=== PATIENT | male | born 1975 | race Hispanic/Latino ===

== ENCOUNTER 2017-09-22 11:35 | Emergency (ER) | payer BC, SELFPAY ==
[~2017-09-22 11:35] MED LIST: Iopamidol 370 76% 100 ML VIAL ONE
[2017-09-22] MEDS ORDERED: traMADol HCl 50 MG TAB ONE (12:26)
[2017-09-22] MEDS ORDERED: Ketorolac Tromethamine 60 MG/2 ML VIAL ONE (12:26)
[2017-09-22] MEDS ORDERED: Acetaminophen 500 MG TAB ONE (13:43)
[2017-09-22 13:53] LABS: #Basophils 0.2 thou/uL (0.0-0.2); #Lymphocytes 1.2 thou/uL (1.20-3.40); #Neutrophils 8.6 thou/uL (1.40-6.50); %Basophils 1.5 % (0.0-1.0); %Eosinophils 0.1 % (0.0-10.0); %Lymphocytes 11.1 % (21.0-51.0); %Monocytes 9.1 % (0.0-10.0); %Neutrophils 78.2 % (42.0-75.0); Hemoglobin 15.9 g/dL (14.0-18.0); Mean Corpuscular HGB CONC 32.8 g/dL (32.0-36.0); Mean Corpuscular Volume 82.4 fl (80.0-94.0); Mean Platelet Volume 10.5 fL (7.4-10.4); Platelet Count 201 thou/uL (130-400); RBC Distribution Width 12.3 % (11.5-14.5); Red Blood Cell (RBC) Count 5.87 mill/uL (4.70-6.10); White Blood Cell (WBC) Count 10.9 thou/uL (4.8-10.8)
[2017-09-22 14:01] LABS: ALT (SGPT) 114 U/L (8-55); AST (SGOT) 59 U/L (5-34); Albumin 3.7 g/dL (3.5-5.0); Alkaline Phosphatase 260 U/L (40-150); Anion Gap 17 mmol/L (10-20); BUN (Urea Nitrogen) 15 mg/dL (8.9-20.6); Bilirubin, Total 0.6 mg/dL (0.2-1.2); Calc. Creatinine Clearance 0 mL/min (70-130); Calcium 9.9 mg/dL (7.8-10.44); Carbon Dioxide 24 mmol/L (22-29); Chloride 94 mmol/L (98-107); Estimated GFR-MDRD Greater than 90; Globulin 4.7 g/dL (2.4-3.5); Glucose 106 mg/dL (70-105); Potassium 3.9 mmol/L (3.5-5.1); Protein, Total 8.4 g/dL (6.0-8.3); Sodium 131 mmol/L (136-145)
[2017-09-22] MEDS ORDERED: Sodium Chloride 0.9% 1,000 ML ONE (14:03)
[2017-09-22 14:28] LABS: Bilirubin Small (Negative); Blood, Urine Trace (Negative); Clarity Clear (Clear); Glucose, Urine (Dipstick) Negative (Negative); Leukocyte Negative (Negative); Nitrite Negative (Negative); Protein, Urine (Dipstick) 100 mg/dL (Neg-Trace); Specific Gravity, Urine 1.015 (1.005-1.030)
[2017-09-22 14:41] LABS: Bacteria/HPF Rare-Few HPF (None Seen); RBC/HPF 0-3 HPF (0-3); Squamous Epithelial 0-3 HPF (0-3); WBC/HPF 0-3 HPF (0-3)
--- NOTE | 2017-09-22 15:34 | CT ---
CT CHEST WITH IV CONTRAST: Date: 09/22/17 PROVIDED CLINICAL HISTORY: Fever of unknown origin. FINDINGS: The heart, pericardium, and great vessels demonstrate an unremarkable CT appearance. The lungs are free of significant opacity. There is a mild right pleural effusion, which appears free layering and without peripheral enhancemen t. There is no evidence for pneumothorax. The airway appears patent and of normal caliber. The osseous s tructures demonstrate no concerning osteoblastic or osteolytic lesions. The visualized portions of th e upper abdomen demonstrate an unremarkable CT appearance. IMPRESSION: Mild right pleural effusion. POS: [facility]
== END 2017-09-22 15:10 | disposition home or self-care (01) ==
LOC: NAV ERS 11:35
DX: S29.012A Strain of muscle and tendon of back wall of thorax, initial encounter (principal); E86.0 Dehydration; R50.9 Fever, unspecified; I10 Essential (primary) hypertension; R94.5 Abnormal results of liver function studies; F17.210 Nicotine dependence, cigarettes, uncomplicated; Z79.899 Other long term (current) drug therapy; X58.XXXA Exposure to other specified factors, initial encounter
CPT/HCPCS: 71260; 80053; 81003; 81015; 83605; 85025; 87040; 87077; 87149; 87186; 96360; 96372; J1885; J7050

== ENCOUNTER 2018-05-27 11:44 | Emergency (ER) | payer OTHER, SELFPAY ==
[2018-05-27] MEDS ORDERED: Ondansetron PF 4 MG/2 ML Vial ONE (12:00)
[2018-05-27] MEDS ORDERED: Fentanyl 100 MCG/2 ML VIAL ONE (12:00)
[2018-05-27] MEDS ORDERED: Sodium Chloride 0.9% 1,000 ML ONE ×2 (12:00→14:43)
[2018-05-27 12:30] LABS: ALT (SGPT) 28 U/L (8-55); AST (SGOT) 19 U/L (5-34); Albumin 4.2 g/dL (3.5-5.0); Alkaline Phosphatase 92 U/L (40-150); Anion Gap 15 mmol/L (10-20); BUN (Urea Nitrogen) 13 mg/dL (8.9-20.6); Bilirubin, Total 0.9 mg/dL (0.2-1.2); Calc. Creatinine Clearance 0 mL/min (70-130); Calcium 9.7 mg/dL (7.8-10.44); Carbon Dioxide 21 mmol/L (22-29); Chloride 102 mmol/L (98-107); Estimated GFR-MDRD Greater than 90; Glucose 112 mg/dL (70-105); Lipase 8 U/L (8-78); Potassium 3.8 mmol/L (3.5-5.1); Protein, Total 8.2 g/dL (6.0-8.3); Sodium 134 mmol/L (136-145)
[2018-05-27 12:34] LABS: #Basophils 0.1 thou/uL (0.0-0.2); #Eosinphils 0.1 thou/uL (0.0-0.7); #Lymphocytes 1.6 thou/uL (1.20-3.40); #Monocytes 0.8 thou/uL (0.11-0.59); #Neutrophils 10.2 thou/uL (1.40-6.50); %Basophils 0.5 % (0.0-1.0); %Eosinophils 0.5 % (0.0-10.0); %Lymphocytes 12.5 % (21.0-51.0); %Monocytes 6.6 % (0.0-10.0); %Neutrophils 79.8 % (42.0-75.0); Hemoglobin 15.5 g/dL (14.0-18.0); Mean Corpuscular HGB CONC 31.7 g/dL (32.0-36.0); Mean Corpuscular Hemoglobin 27.1 pg (27.0-31.0); Mean Corpuscular Volume 85.7 fL (78.0-98.0); Mean Platelet Volume 12.6 fL (7.4-10.4); Platelet Count 240 thou/uL (130-400); RBC Distribution Width 11.8 % (11.5-14.5); White Blood Cell (WBC) Count 12.7 thou/uL (4.8-10.8)
--- NOTE | 2018-05-27 12:59 | RAD ---
CHEST 1 VIEW: Date: 05/27/18 INDICATION: History of chest pain and abdominal pain. FINDINGS: Lungs are clear. Heart size accentuated by exam technique. No pleural effusion or pneumothorax is rosa dent. No acute osseous abnormality is evident. IMPRESSION: No acute abnormality. POS: [facility]
[2018-05-27] MEDS ORDERED: metroNIDAZOLE 500 MG/100 ML BAG ONE (13:51)
[2018-05-27] MEDS ORDERED: Morphine 4 MG/ML VIAL ONE (14:14)
[2018-05-27] MEDS ORDERED: Ciprofloxacin Lactate/D5W 400 mg/200 ml Premix ONE (14:15)
--- NOTE | 2018-05-27 18:47 | CT ---
CT ABDOMEN AND PELVIS WITH IV CONTRAST: Date: 05/27/18 INDICATION: History of abdominal pain. COMPARISON: None. FINDINGS: Lung bases are clear. There is fatty infiltration of the liver. The pancreas and adrenal glands are normal appearing. The spleen is normal appearing. The kidneys are normal appearing. There is wall thickening involving a loop of sigmoid colon on image 73 of series 2 with surrounding i nflammatory stranding. There are mildly dilated loops of small bowel that transition near this region which may reflect a localized ileus. No definite drainable fluid collection is evident. The appendix also traverses near this region and appears mildly thickened with no overt changes of appendicitis. The appendix measures up to 7.8 cm, but there is gas within the appendiceal tip. The bladder is decompressed. The rectum and perirectal soft tissues are unremarkable. There is scatte red diverticula involving the colon. No definite acute osseous abnormality is evident. There is scattered degenerative and osteoarthritic change. IMPRESSION: 1. Findings of sigmoid diverticulitis with pericolonic inflammatory stranding involving the sigmoid colon. There is suggestion of a reactive ileus involving the small bowel. There is some slight promin ence of the adjacent appendix which may be reactive in nature as there is gas present within the lume n of the appendix. Would recommend appropriate colon screening after abatement of the patient's acute symptoms as a localized colonic malignancy cannot be entirely excluded. 2. Fatty liver. 3. Other chronic findings as above. POS: [facility]
== END 2018-05-27 15:34 | disposition short-term general hospital (02) ==
LOC: NAV ERS 11:44
DX: K57.32 Diverticulitis of large intestine without perforation or abscess without bleeding (principal); K37 Unspecified appendicitis; K56.7 Ileus, unspecified; D72.829 Elevated white blood cell count, unspecified; F17.210 Nicotine dependence, cigarettes, uncomplicated
CPT/HCPCS: 71045; 74177; 80053; 83605; 83690; 85025; 87040; 93005; 94760; 96361; 96365; 96368; 96375; J0744; J2270; J2405; J3010; J7050

== ENCOUNTER 2020-04-20 08:22 | Emergency (ER) | payer SELFPAY ==
[2020-04-20] MEDS ORDERED: Iopamidol 370 76% 100 ML VIAL ONE (09:00)
[2020-04-20] MEDS ORDERED: Ondansetron PF 4 MG/2 ML Vial ONE (09:20)
[2020-04-20] MEDS ORDERED: Ketorolac Tromethamine 30 MG/ML VIAL ONE (09:20)
[2020-04-20] MEDS ORDERED: Morphine 4 MG/ML VIAL ONE ×2 (09:20→11:02)
[2020-04-20 09:21] LABS: ALT (SGPT) 15 U/L (8-55); AST (SGOT) 13 U/L (5-34); Albumin 4.2 g/dL (3.5-5.0); Alkaline Phosphatase 99 U/L (40-110); Anion Gap 13 mmol/L (10-20); BUN (Urea Nitrogen) 12 mg/dL (8.9-20.6); Bilirubin, Total 1.3 mg/dL (0.2-1.2); Calc. Creatinine Clearance 0 mL/min (70-130); Calcium 9.5 mg/dL (7.8-10.44); Carbon Dioxide 26 mmol/L (22-29); Chloride 99 mmol/L (98-107); Estimated GFR-MDRD 81; Globulin 3.8 g/dL (2.4-3.5); Glucose 129 mg/dL (70-105); Potassium 3.7 mmol/L (3.5-5.1); Sodium 134 mmol/L (136-145)
[2020-04-20 09:25] LABS: #Basophils 0.1 thou/uL (0.0-0.2); #Lymphocytes 1.6 thou/uL (1.20-3.40); #Monocytes 0.8 thou/uL (0.11-0.59); #Neutrophils 12.2 thou/uL (1.40-6.50); %Basophils 0.8 % (0.0-1.0); %Eosinophils 0.2 % (0.0-10.0); %Monocytes 5.3 % (0.0-10.0); %Neutrophils 82.7 % (42.0-75.0); Hemoglobin 16.2 g/dL (14.0-18.0); Mean Corpuscular HGB CONC 32.3 g/dL (32.0-36.0); Mean Corpuscular Hemoglobin 28.2 pg (27.0-31.0); Mean Corpuscular Volume 87.4 fL (78.0-98.0); Mean Platelet Volume 12.5 fL (7.4-10.4); Platelet Count 261 thou/uL (130-400); RBC Distribution Width 12.4 % (11.5-14.5); Red Blood Cell (RBC) Count 5.75 mill/uL (4.70-6.10); White Blood Cell (WBC) Count 14.7 thou/uL (4.8-10.8)
[2020-04-20 09:26] LABS: Platelet Morphology Comment Appears Adequate
[2020-04-20] MEDS ORDERED: Sodium Chloride 0.9% 1,000 ML ONE (09:40)
[2020-04-20] MEDS ORDERED: Piperacillin/Tazobactam 3.375 GM VIAL ONE (09:41)
[2020-04-20] MEDS ORDERED: Sodium Chloride 0.9% 0 ML ONE (09:41)
[2020-04-20] MEDS ORDERED: Sodium Chloride 0.9% 100 ML ONE (09:41)
[2020-04-20] MEDS ORDERED: Sodium Chloride 0.9% 500 ML ONE (09:44)
--- NOTE | 2020-04-20 10:40 | CT ---
CT ABDOMEN AND PELVIS WITH IV CONTRAST: INDICATION: Abdominal pain. Leukocytosis. COMPARISON: Comparison is made to CT abdomen and pelvis 05/27/2018. That exam revealed evidence of sigmoid diver ticulitis. FINDINGS: Lung bases clear. The liver, spleen, and pancreas are unremarkable. Adrenal glands normal. Kidneys unremarkable. Small bowel loops normal caliber. Review of the colon again shows inflammatory change surrounding the mid sigmoid colon. There is dive rticulosis at this site and the findings are again suggestive of diverticulitis. There is no evidenc e of extraluminal fluid or abscess. There is a focus of what appears to be extraluminal gas within this inflammatory change in the mid up per pelvis adjacent to the wall of the sigmoid colon at the site of the inflammation. No evidence of extraluminal fluid or abscess collection. Close followup is recommended to monitor development of a bscess at this location. IMPRESSION: 1. Inflammatory change involving the mid sigmoid consistent with diverticulitis as described above. There is a small focus of extraluminal gas within this inflammatory process. No fluid or abscess co llection at this time. Close followup recommended. POS: [facility]
[2020-04-20 11:43] LABS: Bilirubin Small (Negative); Blood, Urine Negative (Negative); Clarity Clear (Clear); Glucose, Urine (Dipstick) Negative (Negative); Ketone, Urine Negative (Negative); Leukocyte Negative (Negative); Nitrite Negative (Negative); pH, Urine 5.5 (5.0-9.0)
[2020-04-20 11:45] LABS: Protein, Urine (Dipstick) Trace mg/dL (Neg-Trace)
== END 2020-04-20 11:34 | disposition short-term general hospital (02) ==
LOC: NAV ERS 08:22
DX: A41.9 Sepsis, unspecified organism (principal); R14.0 Abdominal distension (gaseous); K57.32 Diverticulitis of large intestine without perforation or abscess without bleeding; F17.210 Nicotine dependence, cigarettes, uncomplicated; E11.9 Type 2 diabetes mellitus without complications; M86.9 Osteomyelitis, unspecified; I10 Essential (primary) hypertension; Z79.84 Long term (current) use of oral hypoglycemic drugs; Z79.899 Other long term (current) drug therapy
CPT/HCPCS: 74177; 80053; 81003; 83605; 83690; 85025; 87040; 94760; 96365; 96375; J1885; J2270; J2405; J2543; J3370; J3490; J7030; J7050; Q9967

== ENCOUNTER 2022-08-09 16:56 | Emergency (ER) | payer SELFPAY ==
[2022-08-09 17:27] LABS: #Basophils 0.1 thou/uL (0.0-0.2); #Lymphocytes 1.3 thou/uL (1.20-3.40); #Monocytes 0.6 thou/uL (0.11-0.59); #Neutrophils 8.6 thou/uL (1.40-6.50); %Eosinophils 0.1 % (0.0-10.0); %Lymphocytes 12.5 % (21.0-51.0); %Neutrophils 80.4 % (42.0-75.0); Hemoglobin 17.1 g/dL (14.0-18.0); Mean Corpuscular HGB CONC 31.5 g/dL (32.0-36.0); Mean Corpuscular Hemoglobin 28.1 pg (27.0-31.0); Mean Corpuscular Volume 89.3 fl (78.0-98.0); Mean Platelet Volume 11.9 fL (7.4-10.4); Platelet Count 323 10x3/uL (130-400); RBC Distribution Width 12.6 % (11.5-14.5); Red Blood Cell (RBC) Count 6.07 mill/uL (4.70-6.10); White Blood Cell (WBC) Count 10.7 10x3/uL (4.8-10.8)
[2022-08-09] MEDS ORDERED: Ondansetron PF 4 MG/2 ML Vial ONE (17:32)
[2022-08-09] MEDS ORDERED: Morphine 4 MG/ML VIAL ONE (17:32)
[2022-08-09] MEDS ORDERED: Sodium Chloride 0.9% 2,000 ML ONE (17:32)
[2022-08-09 17:41] LABS: ALT (SGPT) 42 U/L (8-55); AST (SGOT) 23 U/L (5-34); Albumin 4.6 g/dL (3.5-5.0); Alkaline Phosphatase 106 U/L (40-110); Anion Gap 22 mmol/L (10-20); BUN (Urea Nitrogen) 32 mg/dL (8.9-20.6); Bilirubin, Total 0.5 mg/dL (0.2-1.2); CK (CPK) 378 U/L (30-200); Calc. Creatinine Clearance 0 mL/min (70-130); Calcium 9.9 mg/dL (7.8-10.44); Carbon Dioxide 22 mmol/L (22-29); Chloride 99 mmol/L (98-107); Estimated GFR 31; Globulin 4.2 g/dL (2.4-3.5); Glucose 147 mg/dL (70-105); Lipase 19 U/L (8-78); Magnesium 1.9 mg/dL (1.6-2.6); Potassium 4.6 mmol/L (3.5-5.1); Protein, Total 8.8 g/dL (6.0-8.3); Sodium 138 mmol/L (136-145)
[2022-08-09 19:12] LABS: Cocaine Metabolite Screen Not Detected (NotDetected); Methamphetamine Detected (NotDetected); Phencyclidine (PCP) Not Detected (NotDetected); THC/Cannabinoid Screen Detected (NotDetected)
[2022-08-09 19:13] LABS: Amphetamine Detected (NotDetected); Barbiturates Screen Not Detected (NotDetected); Benzodiazepine Screen Not Detected (NotDetected); Medtox Control Line Valid? VALID (VALID); Methadone Not Detected (NotDetected); Opiate Screen Detected (NotDetected); Oxycodone Screen Not Detected (NotDetected); Tricyclic Screen Not Detected (NotDetected)
== END 2022-08-09 19:50 | disposition home or self-care (01) ==
LOC: NAV ERS 16:56
DX: E86.0 Dehydration (principal); E11.9 Type 2 diabetes mellitus without complications; F17.210 Nicotine dependence, cigarettes, uncomplicated; I10 Essential (primary) hypertension; Z79.84 Long term (current) use of oral hypoglycemic drugs; Z79.899 Other long term (current) drug therapy
CPT/HCPCS: 80053; 80306; 82550; 83605; 83690; 83735; 84484; 85025; 93005; 96361; 96374; 96375; J2270; J2405; J7050